=== PATIENT | male | born 1955 | race Caucasian/White ===

== ENCOUNTER 2019-10-14 09:42 | Emergency (ER) | payer OTHER ==
--- OUTSIDE RECORDS SUMMARY | 2019-10-14 09:43 | XMS REPORT | Continuity of Care Document ---
:1955 Author Organization [facility] t Address [address] [place] [address] Care Team Providers Name Role Phone SHERLY Attending Clinician Unavailable Problems Condition Condition Condition Status Onset Resolution Last Treating Co mments Source Name Details Category Date Date Treatment Clinician Date History of History of Problem Resolve [facility] heart heart [id number].CCDAR2 d ity of attack attack [place] [facility] ans Other Other Problem Active Univers closed closed [id number].[id number] [place] fracture fracture [place] of third of third ans cervical cervical vertebra vertebra with with routine routine healing, healing, subsequent subsequent encounter encounter Fracture Fracture Problem Active 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 ity of of of [place] cervical cervical Physic i vertebra, vertebra, ans subsequent subsequent encounter encounter Fracture Fracture Problem Active Unive rs dislocatio dislocatio HL7.CCDAR2 ity of n of n of [place] cervical cervical Physic i spine, spine, ans subsequent subsequent encounter encounter [place] Problem Active [facility] 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 Social History Smoking Status Start Date Stop Date Source Smoker. current status unknown [facility] Medications Ordered Filled Start Stop Current Ordering Indication Dosage Frequency Signature Comments Components Source Medication Medication Date Date Medication? Clinician (SIG) Name Name TraMADol TraMADol 2016-03 Yes GAMALIEL TAKE 1 Uni vers HCl - 50 MG HCl - 50 MG 0-19 PRASARN TABLET ity of Oral Tablet Oral Tablet 00:00: M.D. EVERY 4 TO [place] 00 6 HOURS Physici NEEDED FOR ans PAIN. Acetaminoph Acetaminoph Yes GAMALIEL Q6H TAKE 1 [facility] en-Codeine en-Codeine 9-22 PRASARN TABLET ity of #3 300-30 #3 300-30 00:00: M.D. EVERY 6 [place] MG Oral MG Oral 00 HOURS Physi ci Tablet Tablet NEEDED. ans Gabapentin Gabapentin 2016-0 Yes GAMALIEL 1 Q0.3333D TAKE 1 Univers 300 MG Oral 300 MG Oral 12-04 PRASARN CAPSULE 3 ity of Capsule Capsule 00:00: M.D. TIMES [place] 00 DAILY Physici ans Clopidogrel Clopidogrel Yes U nivers Bisulfate Bisulfate ity o f 75 MG Oral 75 MG Oral Jc as Tablet Tablet Physici ans Vital Signs Vital Name Observation Time Observation Value Comments Source Height 2017-02-10 13:18:00 66 [in_us] [facility] Weight 2017-02-10 13:18:00 160 [lb_av] [facility] Body Mass Index 2017-02-10 13:18:00 25.82 kg/m2 [facility] Calculated Physicians Height 2017-01-14 08:47:00 66 [in_us] [facility] Weight 2017-01-14 08:47:00 160 [lb_av] [facility] Body Mass Index 2017-01-14 08:47:00 25.82 kg/m2 [facility] Calculated Physicians Procedures Procedure Date / Time Performed Performing Clinician Sourc e [U] XRAY SPINE 2017-10-29 00:00:00 [facility] [place] CERVICAL 2 OR 3 [facility] [id number] [U] XRAY SPINE 2017-05-07 00:00:00 [facility] [place] CERVICAL 2 OR 3 [facility] [id number] [U] XRAY SPINE 2017-05-03 00:00:00 [facility] [place] CERVICAL 2 OR 3 [facility] [id number] History of Coronary [facility] [place] artery bypass graft Physicians Encounters Start End Encounter Admission Attending Care Care Encounter Source Date/Time Date/Time Type Type Clinicians Facility Department ID 2017-11-01 2017-11-01 [facility] [id number] [facility] 13:45:00 13:45:00 t; Se[facility] at [facility] it of Carlos DUBOIS M.D. Physi ci ans 2017-05-10 2017-05-10 [facility] [id number] [facility] 14:00:00 14:00:00 t; Seema [facility]STON at [place], [place] Seema [facility] Physi ci ans 2017-02-08 2017-02-08 Appointmen [facility]ERLY [facility] [id number] Univers 14:00:00 14:00:00 t; Seema [facility]ST[facility] at [place], [place] Seema [facility] Physi ci ans 2017-01-13 2017-01-[facility] [id number] Univers 13:15:00 13:15:00 t; Seema ALSTON [place], [place] Seema [facility] Physi ci ans 2016-12-04 2016-12-04 [facility] [id number] Univers 15:00:00 15:00:00 t; Seema ALST[place], [place] Seema [facility] Physi ci ans Results This patient has no known results.
--- NOTE | 2019-10-14 10:20 | EDPHYS ---
Physician Documentation [facility] Name: Thomas Benitez Age: 64 yrs Sex: Male : 1955 Arrival Date: 10/14/2019 Time: 09:45 Bed 3 Private MD: ED Physician Campbell Dorantes HPI: 10/13 09:58 This 64 yrs old Male presents to ER via EMS with complaints of Altered Mental pool Status, Fall Injury. 09:58 The patient presents with confusion, decreased mental status. Onset: The pool symptoms/episode began/occurred this morning. Possible causes: CVA or TIA, alcohol, head injury, low blood sugar, unknown. Associated signs and symptoms: Pertinent positives: confusion, dizziness, gait abnormality, weakness, cant talk. Historical: - Allergies: :28 No Known Allergies; ph - Home Meds: 10:05 aspirin 325 mg Oral TbEC 1 tab once daily [Active]; Plavix 75 mg Oral tab 1 tab once ss daily [Active]; ramipril 5 mg oral cap 1 cap once daily [Active]; simvastatin 40 mg oral tab once daily [Active]; - PMHx: 10:01 CAD; Hypertension; High Cholesterol; Myocardial infarction; ss - PSHx: 10:01 CABG; Heart stents; ss - Immunization history:: Adult Immunizations unknown. - Family history:: not pertinent. - Social history:: Smoking status: unknown. ROS: 09:58 Unable to obtain ROS due to patient's speech is incomprehensible. pool Exam: 09:58 Constitutional: This is a well developed, well nourished patient who is awake, alert, pool and in no acute distress. Head/Face: Normocephalic, atraumatic. Eyes: Pupils equal round and reactive to light, extra-ocular motions intact. Lids and lashes normal. Conjunctiva and sclera are non-icteric and not injected. Cornea within normal limits. Periorbital areas with no swelling, redness, or edema. ENT: Nares patent. No nasal discharge, no septal abnormalities noted. Tympanic membranes are normal and external auditory canals are clear. Oropharynx with no redness, swelling, or masses, exudates, or evidence of obstruction, uvula midline. Mucous membranes moist. Neck: Trachea midline, no thyromegaly or masses palpated, and no cervical lymphadenopathy. Supple, full range of motion without nuchal rigidity, or vertebral point tenderness. No Meningismus. Chest/axilla: Normal chest wall appearance and motion. Nontender with no deformity. No lesions are appreciated. Cardiovascular: Regular rate and rhythm with a normal S1 and S2. No gallops, murmurs, or rubs. Normal PMI, no JVD. No pulse deficits. Respiratory: Lungs have equal breath sounds bilaterally, clear to auscultation and percussion. No rales, rhonchi or wheezes noted. No increased work of breathing, no retractions or nasal flaring. Back: No spinal tenderness. No costovertebral tenderness. Full range of motion. Male : Normal genitalia with no discharge or lesions. 09:58 Skin: multiple abrasions and contusions, right arm, leg and head. 10:36 ECG was reviewed by the Attending Physician. pool Vital Signs: 09:58 BP 147 / 80; Pulse 95; Resp 18; Temp 97.5; Pulse Ox 98% on R/A; Weight 70.31 kg; ph 11:00 BP 158 / 92; Pulse 67; Resp 18; Pulse Ox 98% on R/A; ph 11:58 BP 160 / 83; Pulse 65; Resp 18; Pulse Ox 98% on R/A; ph 13:00 BP 157 / 86; Pulse 66; Resp 18; Temp 97.8; Pulse Ox 99% on R/A; ph NIH Stroke Scale Scores: 10:10 NIHSS Score: 4 ph 10:30 NIHSS Score: 4 pool [place] Coma Score: 13:00 Eye Response: spontaneous(4). Verbal Response: oriented(5). Motor Response: obeys ph commands(6). Total: 15. MDM: 09:47 Patient medically screened. pool 10:06 Differential Diagnosis: CVA, electrolyte abnormality, hypoglycemia, seizure, TIA, pool volume depletion. Data reviewed: vital signs, nurses notes, lab test result(s), EKG, radiologic studies, CT scan, plain films. Data interpreted: shuttle car operator: rate is 95 beats/min, rhythm is normal sinus rhythm, Pulse oximetry: on room air is 98 %. Test interpretation: by ED physician or midlevel provider: ECG, plain radiologic studies. Counseling: I had a detailed discussion with the patient and/or guardian regarding: the historical points, exam findings, and any diagnostic results supporting the discharge/admit diagnosis, the presence of at least one elevated blood pressure reading (>120/80) during this emergency department visit, lab results, radiology results. 10:13 Physician consultation: Dirk Santana MD unknown onset, no tpa. [facility] 10:35 Other consultation: dr ortiz,no tpa. [facility] 10/13 09:57 Order name: Basic Metabolic Panel; Complete Time: 11:12 [facility] 10/13 09:57 Order name: CBC with Diff; Complete Time: 11:12 [facility] 10/13 09:57 Order name: LFT's; Complete Time: 11:12 [facility] 10/13 09:57 Order name: Magnesium; Complete Time: 11:12 [facility] 10/13 09:57 Order name: NT PRO-BNP; Complete Time: 11:12 [facility] 10/13 09:57 Order name: PT-INR; Complete Time: 11:12 [facility] 10/13 09:45 Order name: CT Head C Spine; Complete Time: 11:13 10/13 09:57 Order name: Troponin (emerg Dept Use Only); Complete Time: 11:12 [facility] 10/13 09:57 Order name: XRAY Chest (1 view); Complete Time: 11:53 [facility] 10/13 10:16 Order name: CT Head Angio; Complete Time: 11:26 [facility] 10/13 10:16 Order name: CT Neck Angio; Complete Time: 11:26 tx 10/13 09:57 Order name: EKG; Complete Time: 09:58 [facility] 10/13 09:57 Order name: Cardiac monitoring; Complete Time: 10:12 [facility] 10/13 09:57 Order name: EKG - Nurse/Tech; Complete Time: 10:32 [facility] 10/13 09:57 Order name: IV Saline Lock; Complete Time: 10:12 [facility] 10/13 09:57 Order name: Labs collected and sent; Complete Time: 10:31 [facility] 10/13 09:57 Order name: O2 Per Protocol; Complete Time: 10:12 [facility] 10/13 09:57 Order name: O2 Sat Monitoring; Complete Time: 10:12 [facility] EC:36 Rate is 69 beats/min. Rhythm is regular. QRS [place] is Normal. SD interval is normal. QRS pool interval is normal. QT interval is normal. No Q waves. T waves are Normal. No ST changes noted. Clinical impression: Normal ECG, NSR w/ Non-specific ST/T Changes, and No evidence of ischemia. Interpreted by me. Reviewed by me. Administered Medications: 10:25 Drug: NS 0.9% 1000 ml Route: IV; Rate: 1 bolus; Site: left forearm; ph 12:15 Follow up: Response: No adverse reaction; IV Status: Completed infusion ph 10:25 Drug: foLIC Acid 1 mg Route: IVPB; Site: left antecubital; ph 11:00 Follow up: Response: No adverse reaction; IV Status: Completed infusion ph 11:49 Drug: PlaVIX 75 mg Route: PO; em 12:15 Follow up: Response: No adverse reaction ph 11:49 Drug: Aspirin 162 mg Route: PO; em 12:15 Follow up: Response: No adverse reaction ph Disposition: 10/14/19 10:20 Transfer ordered to [facility]. Diagnosis are Altered mental status, unspecified, Cerebral infarction, Aphasia following cerebral infarction. - Reason for transfer: Higher level of care. - Accepting physician is to [facility], stroke. - Condition is Stable. - Problem is new. - Symptoms have improved. NIH Stroke Scale - NIH Stroke Score Date: 10/14/2019 Time: 10:10 Total Score = 4 1a. Level of Consciousness (LOC) - 0(Alert) 1b. Level of Consciousness (LOC) (Year \T\ Age) - 2(Neither) 1c. LOC Commands (Open \T\ Closes Eyes/Track Template Maker) - 0(Both) 2. Best Gaze (Lateral Gaze Paresis) - 0(Normal) 3. Visual Field Loss - 0(No visual loss) 4. Facial Palsy - 0(Normal) 5a. Left Arm: Motor (10-second hold) - 0(No drift) 5b. Right Arm: Motor (10-second hold) - 0(No drift) 6a. Left Leg: Motor (5-second hold - always test supine) - 0(No drift) 6b. Right Leg: Motor (5-second hold - always test supine) - 0(No drift) 7. Limb Ataxia (finger/nose \T\ heel/[place] - test with eyes open) - 0(Absent) 8. Sensory Loss (pinprick arms/legs/face) - 0(Normal) 9. Best Language: Aphasia (description/naming/reading) - 1(Mild to moderate aphasia) 10. Dysarthria (speech clarity - read or repeat words) - 1(Mild to Moderate) 11. Extinction and Inattention (visual/tactile/auditory/spatial/personal) - 0(No abnormality) Initials: NIH Stroke Scale - NIH Stroke Score Date: 10/14/2019 Time: 10:30 Total Score = 4 1a. Level of Consciousness (LOC) - 0(Alert) 1b. Level of Consciousness (LOC) (Year \T\ Age) - 2(Neither) 1c. LOC Commands (Open \T\ Closes Eyes/Track Template Maker) - 0(Both) 2. Best Gaze (Lateral Gaze Paresis) - 0(Normal) 3. Visual Field Loss - 0(No visual loss) 4. Facial Palsy - 0(Normal) 5a. Left Arm: Motor (10-second hold) - 0(No drift) 5b. Right Arm: Motor (10-second hold) - 0(No drift) 6a. Left Leg: Motor (5-second hold - always test supine) - 0(No drift) 6b. Right Leg: Motor (5-second hold - always test supine) - 0(No drift) 7. Limb Ataxia (finger/nose \T\ heel/[place] - test with eyes open) - 0(Absent) 8. Sensory Loss (pinprick arms/legs/face) - 0(Normal) 9. Best Language: Aphasia (description/naming/reading) - 1(Mild to moderate aphasia) 10. Dysarthria (speech clarity - read or repeat words) - 1(Mild to Moderate) 11. Extinction and Inattention (visual/tactile/auditory/spatial/personal) - 0(No abnormality) Initials: [facility] Signatures: Dispatcher [employer] Campbell Rodriguez MD MD cha Munoz, Edgar, RN RN Trina Lizarraga RN RN Claudia Ferraro RN RN ph Corrections: (The following items were deleted from the chart) 13:19 10:20 10/14/2019 10:[address] [facility]. Diagnosis is Altered mental status, unspecified; Cerebral infarction; Aphasia following cerebral infarction. Reason for transfer: Higher level of care. Accepting physician is to [facility], stroke. Condition is Stable. Problem is new. Symptoms have improved. pool
--- NOTE | 2019-10-14 10:20 | ER ---
Nurse's Notes [facility] Name: Thomas Benitez Age: 64 yrs Sex: Male : 1955 Arrival Date: 10/14/2019 Time: 09:45 Bed 3 Private MD: Diagnosis: Altered mental status, unspecified;Cerebral infarction;Aphasia following cerebral infarction Presentation: 10/13 09:45 Chief complaint: EMS states: Last seen normal 30 minutes ago. found patient ss outside on ground. Helped him up, sitting in a chair, was diaphoretic, pale and confused. Onset of symptoms was October 14, 2019. 09:45 Acuity: LOCO 2 ss 09:45 Method Of Arrival: EMS: [facility] ss 09:48 Care prior to arrival: IV initiated. 20 GA, in the left antecubital area, Glucose ss check: 105. 09:50 No acute neurological deficit is noted. Pre-hospital glucose is not applicable to this patient. 10:03 Coronavirus screen: Patient denies a cough. Patient denies shortness of breath or ph difficulty breathing. Patient denies measured and/or subjective temperature greater than 100.4F prior to today's visit. Patient denies travel on a cruise ship or to a country the [facility] currently lists as an affected area. Patient denies contact with known and/or suspected case of COVID-19. Proceed with normal triage. Ebola Screen: No symptoms or risks identified at this time. Initial Sepsis Screen: Does the patient meet any 2 criteria? No. Patient's initial sepsis screen is negative. Does the patient have a suspected source of infection? No. Patient's initial sepsis screen is negative. Risk Assessment: Do you want to hurt yourself or someone else? Patient reports no desire to harm self or others. Stroke Activation: Symptom onset > 6 hours Physician: Stroke Attending; Name: ; Notified At: ; Arrived At: Physician: Chief Stroke Resident; Name: ; Notified At: ; Arrived At: Physician: Stroke Resident; Name: ; Notified At: ; Arrived At: Physician: ED Attending; Name: ; Notified At: ; Arrived At: Physician: ED Resident; Name: ; Notified At: ; Arrived At: Historical: - Allergies: 10:28 No Known Allergies; - Home Meds: 10:05 aspirin 325 mg Oral TbEC 1 tab once daily [Active]; Plavix 75 mg Oral tab 1 tab once ss daily [Active]; ramipril 5 mg oral cap 1 cap once daily [Active]; simvastatin 40 mg oral tab once daily [Active]; - PMHx: 10:01 CAD; Hypertension; High Cholesterol; Myocardial infarction; ss - PSHx: 10:01 CABG; Heart stents; ss - Immunization history:: Adult Immunizations unknown. - Family history:: not pertinent. - Social history:: Smoking status: unknown. Screenin:02 Abuse screen: Denies threats or abuse. Denies injuries from another. Nutritional ph screening: No deficits noted. Tuberculosis screening: No symptoms or risk factors identified. Fall Risk None identified. Assessment: 09:42 Reassessment: EMS reports that pt has AMS which has progressed during transport, taken ph directly to CT. 09:47 Reassessment: in CT now. ss 10:00 Reassessment: Patient back in room now, on monitors. Expressive aphasia noted. Dr. tracie Dorantes on the phone speaking with family at this time. 10:01 Reassessment: LAST KNOWN WELL at 1000 last night according to . ss 10:06 General: Appears in no apparent distress. uncomfortable, slender, well groomed, ph Behavior is calm, cooperative. Pain: Unable to use pain scale. pt w/ aphasia. Neuro: Level of Consciousness is awake, alert, obeys commands, Oriented to unable to assess. Switchboard And Control Room Operator are equal bilaterally Moves all extremities. Speech with expressive aphasia noted, Facial symmetry appears normal. Cardiovascular: Capillary refill < 3 seconds in bilateral fingers Patient's skin is warm and dry. Respiratory: Airway is patent Respiratory effort is even, unlabored, Respiratory pattern is regular, symmetrical. GI: No signs and/or symptoms were reported involving the gastrointestinal system. Derm: Skin is healthy with good turgor, Skin is pink, warm \T\ dry. Musculoskeletal: Circulation, motion, and sensation intact. Range of motion: intact in all extremities. Injury Description: Abrasion sustained to right knee. 10:10 VAN Scoring: Arm Drift: Patients demonstrates NO arm weakness. Patient is VAN Negative. ph T-PA (Activase) Screening: Contraindications: Is the patient on Aspirin, Heparin, or Warfarin: Yes. 11:47 Patient has been NPO before screening. The patient is alert, and able to follow em commands. The patient exhibits slurred or garbled speech. The patient is exhibiting difficulty speaking. Provider notified of the indication for Speech Therapy consult. The patient does not exhibit difficulty understanding words. The patient is able to swallow own secretions with no drooling or need for suction. Patient tolerated one teaspoon of water. No drooling, immediate coughing, gurgling, or clearing of the throat was noted. The patient passed the bedside swallow screening. Oral medications may be given as ordered. Contact Physician for further diet orders. Provider notified of bedside swallow screening results: Campbell Dorantes MD. 12:43 Reassessment: Patient appears in no apparent distress at this time. Patient and/or ph family updated on plan of care and expected duration. Pain level reassessed. Report called to Kathya BALLARD at [facility] , transfer form signed by , awaiting EMS for transport. 13:17 Reassessment: Patient appears in no apparent distress at this time. Patient and/or ph family updated on plan of care and expected duration. Pain level reassessed. [facility] at bedside, report given to MARIO Owen-P. Vital Signs: 09:58 BP 147 / 80; Pulse 95; Resp 18; Temp 97.5; Pulse Ox 98% on R/A; Weight 70.31 kg; ph 11:00 BP 158 / 92; Pulse 67; Resp 18; Pulse Ox 98% on R/A; ph 11:58 BP 160 / 83; Pulse 65; Resp 18; Pulse Ox 98% on R/A; ph 13:00 BP 157 / 86; Pulse 66; Resp 18; Temp 97.8; Pulse Ox 99% on R/A; ph Porfirio Coma Score: 13:00 Eye Response: spontaneous(4). Verbal Response: oriented(5). Motor Response: obeys ph commands(6). Total: 15. NIH Stroke Scale Scores: 10:10 NIHSS Score: 4 ph 10:30 NIHSS Score: 4 pool ED Course: 09:45 Patient arrived in ED. 09:46 Claudia Saenz, ELIO is Primary Nurse. 09:47 Triage completed. 09:47 Campbell Dorantes MD is Attending Physician. [facility] 09:57 CT Head C Spine In Process Unspecified. EDMS 10:02 Arm band placed on Patient placed in an exam room, on a stretcher, on monitor technician, ph on pulse oximetry. 10:03 Patient has correct armband on for positive identification. Bed in low position. Call ph light in reach. Side rails up X2. environmental monitoring technician on. Pulse ox on. NIBP on. 10:18 XRAY Chest (1 view) In Process Unspecified. EDMS 10:59 CT Head Angio In Process Unspecified. EDMS 10:59 CT Neck Angio In Process Unspecified. EDMS 13:00 No provider procedures requiring assistance completed. Patient transferred, IV remains ph in place. Administered Medications: 10:25 Drug: NS 0.9% 1000 ml Route: IV; Rate: 1 bolus; Site: left forearm; ph 12:15 Follow up: Response: No adverse reaction; IV Status: Completed infusion ph 10:25 Drug: foLIC Acid 1 mg Route: IVPB; Site: left antecubital; ph 11:00 Follow up: Response: No adverse reaction; IV Status: Completed infusion ph 11:49 Drug: PlaVIX 75 mg Route: PO; em 12:15 Follow up: Response: No adverse reaction ph 11:49 Drug: Aspirin 162 mg Route: PO; em 12:15 Follow up: Response: No adverse reaction ph Outcome: 10:20 ER care complete, transfer ordered by pool 13:19 Patient left the ED. ph 13:19 Transferred by ground EMS to [facility], Transfer form completed. ph X-rays sent w/ patient. 13:19 Condition: stable 13:19 Instructed on the need for transfer. NIH Stroke Scale - NIH Stroke Score Date: 10/14/2019 Time: 10:10 Total Score = 4 1a. Level of Consciousness (LOC) - 0(Alert) 1b. Level of Consciousness (LOC) (Year \T\ Age) - 2(Neither) 1c. LOC Commands (Open \T\ Closes Eyes/Sports Marketing Coordinator) - 0(Both) 2. Best Gaze (Lateral Gaze Paresis) - 0(Normal) 3. Visual Field Loss - 0(No visual loss) 4. Facial Palsy - 0(Normal) 5a. Left Arm: Motor (10-second hold) - 0(No drift) 5b. Right Arm: Motor (10-second hold) - 0(No drift) 6a. Left Leg: Motor (5-second hold - always test supine) - 0(No drift) 6b. Right Leg: Motor (5-second hold - always test supine) - 0(No drift) 7. Limb Ataxia (finger/nose \T\ heel/augustine - test with eyes open) - 0(Absent) 8. Sensory Loss (pinprick arms/legs/face) - 0(Normal) 9. Best Language: Aphasia (description/naming/reading) - 1(Mild to moderate aphasia) 10. Dysarthria (speech clarity - read or repeat words) - 1(Mild to Moderate) 11. Extinction and Inattention (visual/tactile/auditory/spatial/personal) - 0(No abnormality) Initials: ph NIH Stroke Scale - NIH Stroke Score Date: 10/14/2019 Time: 10:30 Total Score = 4 1a. Level of Consciousness (LOC) - 0(Alert) 1b. Level of Consciousness (LOC) (Year \T\ Age) - 2(Neither) 1c. LOC Commands (Open \T\ Closes Eyes/Sports Marketing Coordinator) - 0(Both) 2. Best Gaze (Lateral Gaze Paresis) - 0(Normal) 3. Visual Field Loss - 0(No visual loss) 4. Facial Palsy - 0(Normal) 5a. Left Arm: Motor (10-second hold) - 0(No drift) 5b. Right Arm: Motor (10-second hold) - 0(No drift) 6a. Left Leg: Motor (5-second hold - always test supine) - 0(No drift) 6b. Right Leg: Motor (5-second hold - always test supine) - 0(No drift) 7. Limb Ataxia (finger/nose \T\ heel/augustine - test with eyes open) - 0(Absent) 8. Sensory Loss (pinprick arms/legs/face) - 0(Normal) 9. Best Language: Aphasia (description/naming/reading) - 1(Mild to moderate aphasia) 10. Dysarthria (speech clarity - read or repeat words) - 1(Mild to Moderate) 11. Extinction and Inattention (visual/tactile/auditory/spatial/personal) - 0(No abnormality) Initials: pool Signatures: Dispatcher [employer] Campbell Rodriguez MD MD cha Munoz, Edgar, RN RN em Smirch, Shelby, RN RN ss Hall, Patricia, RN RN ph Corrections: (The following items were deleted from the chart) 10:31 10:25 foLIC Acid 1 mg IVPB in left antecubital ph ph
[2019-10-14] MEDS ORDERED: NA CHLORIDE 0.9% 1,000 ML ONE (10:22)
[2019-10-14] MEDS ORDERED: FOLIC ACID 5 MG/ML VIAL ONE (10:24)
[2019-10-14 10:40] LABS: Protime INR 1.03
[2019-10-14 10:46] LABS: Basophils % 0.5 % (0-1.3); MPV 9.2 fL (7.6-11.3); RBC Red Blood Cell Count 4.98 M/uL (4.33-5.43)
[2019-10-14 10:49] LABS: ALT/SGPT 20 U/L (12-78); AST/SGOT 25 U/L (15-37); Albumin 3.6 g/dL (3.4-5.0); Alkaline Phosphatase 60 U/L (45-117); BUN Blood Urea Nitrogen 9 mg/dL (7-18); Bicarbonate 23 mmol/L (21-32); Bilirubin Direct 0.3 mg/dL (0-0.2); Glucose Level 94 mg/dL (74-106); NT PRO-BNP 321 pg/mL (<125); Potassium 4.3 mmol/L (3.5-5.1); Protein, Total 7.4 g/dL (6.4-8.2); Sodium Level 134 mmol/L (136-145); Troponin (Emerg Dept Use Only) < 0.02 ng/mL (0.0-0.045)
--- NOTE | 2019-10-14 10:49 | RAD REPORT ---
EXAM DESCRIPTION: CT - Head C Spine Mpr Wo Con - 10/14/2019 9:57 am CLINICAL HISTORY: Head and neck injury status post fall. Head and neck pain COMPARISON: 2017 TECHNIQUE: Computed axial tomography of the head and cervical spine was obtained. Sagittal and coronal reconstruction was performed. All CT scans are performed using dose optimization technique as appropriate and may include automated exposure control or mA/KV adjustment according to patient size. FINDINGS: An intracranial bleed is not seen. The ventricles are normal in caliber. An extra-axial fl uid collection is not noted.Fluid within the visualized sinuses and mastoids is not seen An acute cervical fracture is not visualized. No dislocation is noted. . Postsurgical changes involve the spine. Spondylosis C6-7 results moderate central spinal stenosis IMPRESSION: No acute intracranial abnormality is seen. A cervical fracture is not visualized. If the patient continues to have symptoms to suggest intracra nial /spinal cord pathology then MRI would be recommended
--- NOTE | 2019-10-14 11:14 | RAD REPORT ---
EXAM DESCRIPTION: Sebastian Angio10/14/2019 10:59 am CLINICAL HISTORY: cva COMPARISON: None TECHNIQUE: 50 cc Isovue 370 was administered intravenously. 3D MIP reconstruction performed All CT scans are performed using dose optimization technique as appropriate and may include automated exposure control or mA/KV adjustment according to patient size. FINDINGS: Moderate noncalcified plaque is present within the proximal left internal carotid artery. Mild plaque is present within the remainder of the common carotid, internal carotid external carotid arteries bilaterally The right vertebral artery is dominant. Mild plaque is present within the vertebral arteries No aneurysm IMPRESSION: Moderate noncalcified plaque within the proximal left internal carotid artery NASCET criteria used. Mild 0-49% stenosis Moderate 50-69% stenosis Severe 70-99% stenosis
--- NOTE | 2019-10-14 11:19 | RAD REPORT ---
EXAM DESCRIPTION: CTHead angio10/14/2019 10:59 am CLINICAL HISTORY: cva COMPARISON: None TECHNIQUE: CT angiogram of the head was obtained. 3D MIPS reconstruction performed. All CT scans are performed using dose optimization technique as appropriate and may include automated exposure control or mA/KV adjustment according to patient size. FINDINGS: The basilar, anterior cerebral, middle cerebral and posterior cerebral arteries are normal caliber. An aneurysm is not seen. Mild calcified plaque within the distal internal carotid arteries A significant stenosis is not noted. IMPRESSION: No significant abnormalities displayed
--- NOTE | 2019-10-14 11:33 | RAD REPORT ---
EXAM DESCRIPTION: Frederick Single View10/14/2019 10:18 am CLINICAL HISTORY: cough COMPARISON: 2017 FINDINGS: Chronic appearing lung opacities The lungs appear clear of acute infiltrate. The heart is mildly enlarged. Postsurgical changes involve the chest. IMPRESSION: No acute abnormalities displayed
[2019-10-14] MEDS ORDERED: ASPIRIN 81 MG CHEWABLE TABLET ONE (11:52)
[2019-10-14] MEDS ORDERED: CLOPIDOGREL 75 MG TABLET ONE (11:52)
[2019-10-14 13:25] VITALS: TEMP 97.5; O2SAT 98
[2019-10-14 13:28] VITALS: BP 160/83
== END 2019-10-14 13:19 | disposition short-term general hospital (02) ==
LOC: ER 09:42
DX: I63.9 Cerebral infarction, unspecified (principal); R47.01 Aphasia; I10 Essential (primary) hypertension; R29.704 NIHSS score 4; W19.XXXA Unspecified fall, initial encounter; E78.00 Pure hypercholesterolemia, unspecified; I25.2 Old myocardial infarction; Z79.82 Long term (current) use of aspirin; Z79.01 Long term (current) use of anticoagulants; Z95.1 Presence of aortocoronary bypass graft; Z95.818 Presence of other cardiac implants and grafts
CPT/HCPCS: 96365; 96361; 93005; 85025; 80048; 36415; 83735; 85610; 80076; 84484; 83880; 70450; 72125; 70496; 70498; 71045; 99285; Q9967; J7030